=== PATIENT | male | born 2000 | race Caucasian/White ===

== ENCOUNTER 2025-02-11 22:25 | Emergency (ER) | payer SELFPAY ==
--- OUTSIDE RECORDS SUMMARY | 2025-02-11 22:35 | XMS_ITS | Patient Health Record ---
Author Organization [facility] Address [address] [place] [id number] Care Team Providers Care Bottom Buffer Name Role Phone AmarilisJanet Primary Care Provider Allergies No Known Allergies Reason For Referral No Information Social History Tobacco Use: Social History Observation Description Date Details (start date - stop date) Never Smoker NA - NA Sex Assigned At : Social History Observation Description Sex Assigned At Male - Question Answer Notes Did you have a drink containing alcohol in the p ast year? No Points 0 Interpretation Negative [facility] Drug Questionnaire Question Answer Notes Have you used drugs other th an those for medical reasons in the past 12 months? No Do you smoke for age 13 and up Question Answer Notes Are you a: never smoker Smokeless Tobacco Question Answer Notes Tobacco use other than smoking Yes Have you ever had an STD Question Answer Notes Have you ever had an STD No Plan Of Treatment No Information Medical (General) History Surgical History Surgery Date(Month/Year)
[2025-02-11 22:40] VITALS: BP 132/83; PULSE 66; RESP 17; TEMP 36.3; O2SAT 97; BMI 26.6
--- NOTE | 2025-02-12 00:33 | W.ED.DENTAL ---
HPI - Dental/Oral General: Chief complaint: Dental/Oral Stated complaint: L side top tooth pain Time Seen by Provider: 02/11/25 23:04 Source: patient Mode of arrival: ambulatory Limitations: no limitations History of Present Illness: Patient is a 24-year-old male that presents to the emergency department with tenderness and swelling in the left upper jaw. The patient states that this began 2 days ago and worsened today. He denies any fever or chills. He denies any nausea or vomiting. He does report problems with his teeth in the past. He reports some swelling around the gum but denies any pus draining from the area. He presents to the emergency department for further evaluation and treatment. Teeth map:  1. Broken tooth with dental caries and gingival inflammation Associated symptoms: Denies fever(s), odynophagia or tongue swelling Related Data Previous Rx's ?Medication ?Instructions ?Recorded amoxicillin 875 mg-potassium 1 tab PO BID #19 tabs 02/12/25 clavulanate 125 mg tablet chlorhexidine gluconate 0.12 % 15 ml buccal BID #473 mL 02/12/25 mouthwash (Peridex) lidocaine HCl 2 % mucosal solution 15 ml mucous membrane Q4H PRN pain 02/12/25 (Lidocaine Viscous) #100 mL naproxen 500 mg tablet 500 mg PO Q12H PRN pain #10 tabs 02/12/25 Allergies Allergy/AdvReac Type Severity Reaction Status Date / Time No Known Allergies Allergy Verified 02/11/25 22:43 Review of Systems Const: Denies: fever(s) or chills Eyes: Denies: eye discharge or eye redness ENMT: Reports: dental pain; Denies: throat pain, odynophagia or swelling of lips/tongue Card: Denies: chest pain Resp: Denies: dyspnea GI: Denies: abdominal pain, nausea or vomiting : Denies: flank pain, difficulty urinating or dysuria Musc: Denies: neck pain or back pain Skin/Breast: Denies: rash or erythema Neuro: Denies: headache(s) Psych: Denies: anxiety Endo: Denies: polyuria or polydipsia Louis/Lymph: Denies: petechiae All/Imm: Denies: urticaria, throat swelling or tongue swelling PFSH ED PFSH: Medical History No pertinent past medical history Surgical History History of root canal procedure Social History (Updated 02/12/25 @ 01:00 by NITO Chen) Smoking and tobacco/nicotine status: current every day tobacco/nicotine user e-cigarettes Physical Exam Const: COMMON NORMALS: no acute distress and alert GENERAL APPEARANCE: cooperative ORIENTATION/CONSCIOUSNESS: Yes awake HENMT: COMMON NORMALS: normocephalic, atraumatic, external ears normal, EAC's normal, TM's normal bilaterally and Normal external nose present HEAD & SCALP: normocephalic and atraumatic NOSE: Normal external nose present EXTERNAL EAR: Yes external ears normal EXTERNAL AUDITORY CANAL: EAC's normal TYMPANIC MEMBRANE: TM's normal bilaterally MOUTH: Normal oral and palatal mucosa present TEETH & GINGIVA: Yes caries and Yes gingiva abnormal edematous and tender; without any purulent discharge TEETH & GINGIVA IMAGES:  1. Dental caries and tenderness with mild gingival inflammation. No pointing abscess noted. Eye: COMMON NORMALS: conjunctivae normal CONJUNCTIVA: Yes conjunctivae normal Neck/C-Spine: COMMON NORMALS: full ROM and no meningeal signs Resp: COMMON NORMALS: normal respiratory effort, No retractions and clear to auscultation bilaterally AUSCULTATION: clear to auscultation bilaterally, no crackles, no rales, no rhonchi and no wheezes Cardio: COMMON NORMALS: regular rate and regular rhythm RATE: regular rate RHYTHM: regular rhythm GI: COMMON NORMALS: Soft to palpation and non-tender PALPATION: Yes Soft to palpation Extremity: COMMON NORMALS: full ROM Neuro: SENSORIUM/ORIENTATION: Yes alert MENINGEAL SIGNS: Yes no meningeal signs Psych: COMMON NORMALS: cooperative ATTITUDE: Yes calm Course Vital Signs: Vital signs: Vital Signs Temperature 97.4 F L 02/11/25 22:40 Pulse Rate 66 02/11/25 22:40 Respiratory Rate 17 02/11/25 22:40 Blood Pressure 132/83 02/11/25 22:40 Pulse Oximetry 97 02/11/25 22:40 Oxygen Delivery Me thod Room Air 02/11/25 22:40 MDM - Dental/Oral Medical Decision Making Patient was advised of the exam findings. He does have what appears to be dental caries with infection as well as some gingivitis on the left upper jawline. He is afebrile states he has not had any nausea or vomiting. I recommended that he use the medications as directed and follow-up with a dentist as soon as possible for further evaluation and treatment. There is no obvious pointing abscess at this time. The patient expressed understanding of all discharge instructions. Differential Diagnosis Likely gingival abscess, dental caries, toothache, dental abscess and fracture of tooth No radiology studies performed this visit Critical Care Time Critical Care Time: Critical Care Time: No Discharge Plan Discharge Patient Disposition: Home Clinical Impression: Dental caries, Gingivitis, Dental infection Condition: Stable Prescriptions: New lidocaine HCl [Lidocaine Viscous] 2 % solution 15 ml mucous membrane Q4H PRN (Reason: pain) Qty: 100 0RF Rx Instructions: Swish and spit amoxicillin-pot clavulanate 875-125 mg tablet 1 tab PO BID Qty: 19 0RF chlorhexidine gluconate [Peridex] 0.12 % mouthwash 15 ml buccal BID Qty: 473 0RF naproxen 500 mg tablet 500 mg PO Q12H PRN (Reason: pain) Qty: 10 0RF Discharge Orders: Discharge ED (Routine); Ordered 02/12/25 Ordered By: Khris Norwood Referrals: Jitendra Casey DDS [Occupational Therapist, Doctor of Dental Surgery] Discharge Diet: Advance as tolerated Discharge Activity: Resume usual activity Patient Instructions: Gingivitis (ED), Toothache (ED), Opioid Safety, Pain Management, Patient Portal & Charleen Instructions Activity Restrictions/Additional Instructions: Use the medications as directed. Your prescriptions were sent electronically to the [facility] pharmacy in [place]. Warm salt water rinses 3 times a day. Follow-up with a dentist as soon as possible. Warm compresses 15 minutes at a time, 5 times throughout the day as needed for pain. If the warm compress makes the swelling worse you may alternate with ice. Return to the emergency department with any worsening symptoms. Print Language: South African Coding Level of Care Code ED Energy Professional for Beverly Bueno
== END 2025-02-12 00:53 | disposition home or self-care (01) ==
PROVIDERS: Emergency Provider Physician Assistant
DX: K02.9 Dental caries, unspecified (principal); K05.10 Chronic gingivitis, plaque induced; K04.7 Periapical abscess without sinus; F17.290 Nicotine dependence, other tobacco product, uncomplicated
CPT/HCPCS: 99283; J9999